=== PATIENT | female | born 1980 | race African-American/Black ===

== ENCOUNTER 2021-12-15 15:28 | Outpatient (CLI) | payer OTHER | END 2021-12-15 15:29 | disposition home or self-care (01) | LOC: BICRAD 15:28 | PROVIDERS: ATTEND Family Medicine | DX: S33.5XXA Sprain of ligaments of lumbar spine, initial encounter (principal); S83.8X2A Sprain of other specified parts of left knee, initial encounter; G44.319 Acute post-traumatic headache, not intractable; M17.12 Unilateral primary osteoarthritis, left knee; M47.816 Spondylosis without myelopathy or radiculopathy, lumbar region | CPT/HCPCS: 72110 ==